=== PATIENT | female | born 1965 | race Caucasian/White ===

== ENCOUNTER 2017-06-29 10:15 | Emergency (ER) | payer OTHER ==
[~2017-06-29] VITALS: Ht 167.6 cm; Wt 90.0 kg
[~2017-06-29 10:15] MED LIST: ALPR-138 PO; DILTCD180 PO; METO100 PO
[2017-06-29 10:36] VITALS: BP 164/97; PULSE 82; RESP 18; TEMP 98.7; O2SAT 98
[2017-06-29 10:56] VITALS: BP 160/91; PULSE 89; RESP 18; O2SAT 98
[2017-06-29] MEDS ORDERED: CLON0.1T PO (10:59)
[2017-06-29] MEDS ORDERED: METO100T PO (10:59)
[2017-06-29] MEDS ORDERED: HYDR12.56 PO (10:59)
[2017-06-29] MEDS ORDERED: ALPR0.25 PO (10:59)
[2017-06-29] MEDS ORDERED: ASPI-516 CHEW (10:59)
[2017-06-29] MEDS ORDERED: KETOROLAC TROMETHAMINE 30 MG/ML (IVP) VIAL IV PUSH ONE (11:15)
[2017-06-29] MEDS ORDERED: SODIUM CHLORIDE 0.9% FLUSH 10 ML FLUSH IVF PRN (11:15)
[2017-06-29 11:20] VITALS: O2SAT 98
--- NOTE | 2017-06-29 11:21 | PD ---
HPI Chief Complaint: Pain: Acute or Chronic Time Seen by Provider: 11:06 Travel History International Travel<30 days: No Contact w/Intl Traveler<30days: No Traveled to known affect area: No History of Present Illness HPI This is a 52-year-old female with a history of atrial fibrillation, anxiety disorder, hypertension, chronic alcohol use, presents today with complaints of brief left-sided upper chest pain starting today. Patient also reports left posterior back/scapular pain that started 3 days ago. She reports it as a sharp stabbing pain into her left subscapular area. She states that it is worse with movement and with inspiration. The patient is not currently on blood and there is other than an aspirin. She states that she had elected to not be on blood thinners. She states the chest pain started today. She is not sure if it seems related to this or not. There is no reported fevers, chills. There is no reported shortness of breath just the pain with breathing. No nausea no diaphoresis. PFSH Past Medical History Asthma: No Atrial Fibrillation: Yes Anxiety: Yes Depression: No Heart Rhythm Problems: No Cancer: Yes (LEFT BREAST) Cardiac Catheterization: No Cardiovascular Problems: Yes High Cholesterol: No Chest Pain: Yes (REASON FOR VISIT ) Congestive Heart Failure: No COPD: No Diabetes: No Diminished Hearing: No Endocrine: No Hepatitis: No Hiatal Hernia: No Hypertension: Yes Immune Disorder: No Medical other: Yes (ARTHRITIS) Musculoskeletal: No Neurologic: No Psychiatric: No Reproductive: No Respiratory: No Integumentary: Yes (BI LAT LOW LEG EDEMA) Radiation Therapy: Yes Sleep Apnea: No Thyroid Disease: No Tetanus Vaccination: Unknown Influenza Vaccination: No ?: Not Past Surgical History Section: Yes Coronary Artery Bypass Graft: No Gynecologic Surgery: Yes (C SECTION, HYSTERECTOMY) Hysterectomy: Yes Oral Surgery: Yes (T & A) Pacemaker: No Thoracic Surgery: Yes (LEFT BREAST MASTECTOMY) Tonsillectomy: Yes Social History Alcohol Use: Yes (WEEKLY) Tobacco Use: No Substance Use: No Allergies-Medications (Allergen,Severity, Reaction): Coded Allergies: No Known Allergies (Verified Adverse Reaction, Unknown, 06/29/17) Reported Meds & Prescriptions Reported Meds & Active Scripts Active Hydrocodone-Acetaminophen 5-325 mg Tab 1 Tab PO Q6H PRN Arthrotec 75 (Diclofenac-Misoprostol) 75-0.2 Mg Tab 1 Tab PO BID Flexeril (Cyclobenzaprine HCl) 10 Mg Tab 10 Mg PO TID Reported Alprazolam 0.25 Mg Tab 0.25 Mg PO Q8H PRN Clonidine (Clonidine HCl) 0.1 Mg Tab 0.1 Mg PO BID Hydrochlorothiazide 12.5 Mg Tab 12.5 Mg PO DAILY Metoprolol Tartrate 100 Mg Tab 100 Mg PO DAILY Aspirin 81 Mg Chew 81 Mg CHEW DAILY Review of Systems Except as stated in HPI: all other systems reviewed are Neg General / Constitutional: No: Fever, Chills HENT: No: Headaches, Lightheadedness Cardiovascular: Positive: Irregular Rhythm (History of A. fib), No: Chest Pain or Discomfort, Palpitations Respiratory: Positive: Pleuritic Pain (Left scapular), No: Cough, Shortness of Breath Gastrointestinal: No: Nausea, Vomiting, Abdominal Pain Genitourinary: No: Frequency, Dysuria, Incontinence Musculoskeletal: Positive: Pain, Other (Worse with movement), No: Weakness Skin: No Rash, No Lesions Neurologic: No: Weakness, Dizziness, Headache, Change in Mentation Physical Exam Narrative GENERAL: Well-developed well-nourished female in no obvious respiratory distress. SKIN: Focused skin assessment warm/dry. Patient's face is ready and has rubra. HEAD: Atraumatic. Normocephalic. EYES: No scleral icterus. No injection or drainage. ENT: No nasal bleeding or discharge. Mucous membranes pink and moist. NECK: Trachea midline. Supple. CARDIOVASCULAR: Irregularly irregular with a rate in the 80s. No murmur appreciated. RESPIRATORY: No accessory muscle use. Clear to auscultation. Breath sounds equal bilaterally. Patient has tenderness to palpation in her inferior sub- scapular distribution. No bony deformities. No bruising. GASTROINTESTINAL: Abdomen soft, non-tender, nondistended. MUSCULOSKELETAL: No obvious deformities. No clubbing. No cyanosis. No edema. NEUROLOGICAL: Awake and alert. No obvious cranial nerve deficits. Motor grossly within normal limits. Normal speech. PSYCHIATRIC: Anxious appearing. Data Data Last Documented VS Vital Signs Date Time Temp Pulse Resp B/P (MAP) Pulse Ox O2 Delivery O2 Flow Rate FiO2 06/29/17 12:43 18 06/29/17 12:34 93 133/88 (103) 98 Room Air 06/29/17 10:36 98.7 Orders Orders Electrocardiogram (06/29/17 11:06) Ckmb (Isoenzyme) Profile (06/29/17 11:06) Complete Blood Count With Diff (06/29/17 11:06) Comprehensive Metabolic Panel (06/29/17 11:06) D-Dimer (06/29/17 11:06) Magnesium (Mg) (06/29/17 11:06) Prothrombin Time / Inr (Pt) (06/29/17 11:06) Act Partial Throm Time (Ptt) (06/29/17 11:06) Troponin I (06/29/17 11:06) Ecg Monitoring (06/29/17 11:06) Bilateral Bp Monitoring (06/29/17 11:06) Iv Access Insert/Monitor (06/29/17 11:06) Oximetry (06/29/17 11:06) Oxygen Administration (06/29/17 11:06) Sodium Chloride 0.9% Flush (Ns Flush) (06/29/17 11:15) Ribs, Uni (W/Exp Cxr-Min 3vw) (06/29/17 11:06) Ketorolac Inj (Toradol Inj) (06/29/17 11:15) CKMB (06/29/17 11:12) CKMB% (06/29/17 11:12) Ct Pulmonary Angiogram (06/29/17 12:42) Iohexol 350 Inj (Omnipaque 350 Inj) (06/29/17 13:34) Ed Discharge Order (06/29/17 14:19) Labs Laboratory Tests Test 06/29/17 11:12 White Blood Count 7.2 TH/MM3 Red Blood Count 4.87 MIL/MM3 Hemoglobin 16.3 GM/DL Hematocrit 47.3 % Mean Corpuscular Volume 97.1 FL Mean Corpuscular Hemoglobin 33.4 PG Mean Corpuscular Hemoglobin Concent 34.4 % Red Cell Distribution Width 13.9 % Platelet Count 172 TH/MM3 Mean Platelet Volume 8.7 FL Neutrophils (%) (Auto) 64.7 % Lymphocytes (%) (Auto) 19.9 % Monocytes (%) (Auto) 12.2 % Eosinophils (%) (Auto) 1.7 % Basophils (%) (Auto) 1.5 % Neutrophils # (Auto) 4.7 TH/MM3 Lymphocytes # (Auto) 1.4 TH/MM3 Monocytes # (Auto) 0.9 TH/MM3 Eosinophils # (Auto) 0.1 TH/MM3 Basophils # (Auto) 0.1 TH/MM3 CBC Comment DIFF FINAL Differential Comment Prothrombin Time 10.7 SEC Prothromb Time International Ratio 1.1 RATIO Activated Partial Thromboplast Time 26.4 SEC D-Dimer Quantitative (PE/DVT) 0.53 MG/L FEU Blood Urea Nitrogen 7 MG/DL Creatinine 0.68 MG/DL Random Glucose 93 MG/DL Total Protein 7.7 GM/DL Albumin 4.0 GM/DL Calcium Level 8.8 MG/DL Magnesium Level 1.5 MG/DL Alkaline Phosphatase 74 U/L Aspartate Amino Transf (AST/SGOT) 63 U/L Alanine Aminotransferase (ALT/SGPT) 41 U/L Total Bilirubin 0.8 MG/DL Sodium Level 140 MEQ/L Potassium Level 3.7 MEQ/L Chloride Level 103 MEQ/L Carbon Dioxide Level 30.1 MEQ/L Anion Gap 7 MEQ/L Estimat Glomerular Filtration Rate 91 ML/MIN Total Creatine Kinase 136 U/L Creatine Kinase MB 1.7 NG/ML Troponin I LESS THAN 0.02 NG/ML MDM Medical Decision Making Medical Screen Exam Complete: Yes Emergency Medical Condition: Yes Differential Diagnosis ACS versus pulmonary embolus versus musculoskeletal strain. Narrative Course 52-year-old female presents today with complaints of left posterior scapular pain 4 days. Patient also stated she had a brief episode of left upper chest wall pain. She feels as though they are related. She denies any chest pain at this time. She denies any chest pressure diaphoresis. She reported as a sharp discomfort that radiated to her left upper back. EKG showed A. fib with rate control. Cardiac enzymes within normal limits. D-dimer unfortunate was slightly elevated. A CT scan of the chest to rule out pulmonary embolism was ordered which shows no evidence of acute process. Left rib series showed no evidence of broken ribs. The patient is point tender right under her scapula. I believe this is musculoskeletal in etiology. I discussed with her that at this point while her cardiac enzymes are negative, we would still recommend she consider staying for a rule out in the chest pain center. The patient has adamantly stated that she does not wish to stay in the hospital. She states that she will follow-up with her primary care physician, Dr. Tyrel Arteaga. I will place her on Arthrotec and Flexeril for the muscle pain. I will also give her 2 days of Lortab fives for breakthrough pain. She is instructed to use moist heat on the affected area 2-3 times daily. She is instructed to return if she does any recurrent chest pain, shortness of breath, nausea, diaphoresis, or any other reason that concerns her. Diagnosis Primary Impression: Left posterior subscapular pain. Additional Impressions: Atypical chest pain A. fib by history. Additional Instructions: Return if chest pain returns, shortness breath, nausea, heavy sweating, or any other reason that concerns you. Do not drink alcohol while taking muscle relaxers and pain medication. Follow-up with Dr. Arteaga for further evaluation. We are happy to see you at any time if you reconsider coming back for the chest pain evaluation. Med/Other Pt SpecificInfo: Prescription(s) given Scripts Hydrocodone-Acetaminophen (Hydrocodone-Acetaminophen) 5-325 mg Tab 1 TAB PO Q6H Y for PAIN, #8 TAB 0 Refills Prov: Tim Hager MD 06/29/17 Diclofenac-Misoprostol (Arthrotec 75) 75-0.2 Mg Tab 1 TAB PO BID for Pain Management, #10 TAB 0 Refills Prov: Tim Hager MD 06/29/17 Cyclobenzaprine (Flexeril) 10 Mg Tab 10 MG PO TID for Muscle Spasm, #15 TAB 0 Refills Prov: Tim Hager MD 06/29/17 Disposition: 01 DISCHARGE HOME Condition: Stable Tim Hager MD Jun 29, 2017 11:21
[2017-06-29 11:34] LABS: AUTOMATED NEUTROPHIL # 4.7 TH/MM3 (1.8-7.7); BASOPHIL # 0.1 TH/MM3 (0-0.2); BASOPHIL % 1.5 % (0.0-2.0); EOSINOPHIL # 0.1 TH/MM3 (0-0.4); EOSINOPHIL % 1.7 % (0.0-4.0); HEMATOCRIT 47.3 % (35.0-46.0); HEMOGLOBIN 16.3 GM/DL (11.6-15.3); LYMPH % 19.9 % (9.0-44.0); LYMPHOCYTE # 1.4 TH/MM3 (1.0-4.8); MEAN CELL VOLUME 97.1 FL (80.0-100.0); MEAN CORPUSCULAR HEMOGLOBIN 33.4 PG (27.0-34.0); MEAN CORPUSCULAR HGB CONC 34.4 % (32.0-36.0); MEAN PLATELET VOLUME 8.7 FL (7.0-11.0); MONO % 12.2 % (0.0-8.0); MONOCYTE # 0.9 TH/MM3 (0-0.9); NEUT % 64.7 % (16.0-70.0); PLATELET COUNT 172 TH/MM3 (150-450); RED BLOOD COUNT 4.87 MIL/MM3 (4.00-5.30); RED CELL DISTRIBUTION WIDTH 13.9 % (11.6-17.2); WHITE BLOOD COUNT 7.2 TH/MM3 (4.0-11.0)
[2017-06-29 11:43] LABS: INTERNATIONAL NORMALIZED RATIO 1.1 RATIO; PROTHROMBIN TIME - PATIENT 10.7 SEC (9.8-11.6)
[2017-06-29 11:46] LABS: D-DIMER 0.53 MG/L FEU (0.00-0.50)
--- NOTE | 2017-06-29 11:50 | RADRPT ---
EXAM DATE/TIME: 06/29/2017 11:22 [facility] COMPARISON: No previous studies available for comparison. INDICATIONS : Pain left lower, posterior ribs for 2 weeks, coughing for 2 months, denies trauma MEDICAL HISTORY : Carcinoma, breast. Hypertension A-fib SURGICAL HISTORY : Mastectomy, left. Hysterectomy. Tonsillectomy. breast reconstruction ENCOUNTER: Initial ACUITY: 2 weeks PAIN SCORE: 7/10 LOCATION: Left posterior ribs FINDINGS: 5 views of the chest and left ribs demonstrate no rib fracture or acute rib abnormality. No pneumotho rax is present. Visualized chest demonstrates no acute finding. CONCLUSION: No rib fracture or acute abnormality is identified. Yovani Gipson MD on June 29, 2017 at 11:47 Board Certified Radiologist. This report was verified electronically.
[2017-06-29 11:51] LABS: ALT (GPT) 41 U/L (10-53); AST (GOT) 63 U/L (15-37); BICARBONATE 30.1 MEQ/L (21.0-32.0); BLOOD UREA NITROGEN 7 MG/DL (7-18); CALCIUM 8.8 MG/DL (8.5-10.1); CHLORIDE 103 MEQ/L (98-107); CREATININE 0.68 MG/DL (0.50-1.00); GLOMERULAR FILTRATION RATE 91 ML/MIN (>89); GLUCOSE,RANDOM 93 MG/DL (74-106); MAGNESIUM 1.5 MG/DL (1.5-2.5); SODIUM (NA) 140 MEQ/L (136-145)
[2017-06-29 11:55] LABS: ALKALINE PHOSPHATASE 74 U/L (45-117); TOTAL BILIRUBIN ADULT 0.8 MG/DL (0.2-1.0); TOTAL PROTEIN 7.7 GM/DL (6.4-8.2); TROPONIN I LESS THAN 0.02 NG/ML (0.02-0.05)
[2017-06-29 12:34] VITALS: BP 133/88; PULSE 93; RESP 18; O2SAT 98
[2017-06-29 12:43] VITALS: RESP 18
[2017-06-29] MEDS ORDERED: IOHEXOL 350 MG/ML 10 ML VIAL (for RAD DIAG) IVCONTRAST ONE (13:34)
--- NOTE | 2017-06-29 13:48 | RADRPT ---
EXAM DATE/TIME: 06/29/2017 13:26 [facility] COMPARISON: CT PULMONARY ANGIOGRAM, December 06, 2014, 2:47. INDICATIONS : Left chest pain since this morning, dyspnea IV CONTRAST: 60 cc Omnipaque 350 (iohexol) IV RADIATION DOSE: 10.73 CTDIvol (mGy) MEDICAL HISTORY : Hypertension. Carcinoma, breast. SURGICAL HISTORY : Mastectomy, left. ENCOUNTER: Initial ACUITY: 1 day PAIN SCALE: 8/10 LOCATION: Left chest TECHNIQUE: Volumetric scanning of the chest was performed using a pulmonary embolism protocol MIP images were re constructed. Using automated exposure control and adjustment of the mA and/or kV according to patien t size, radiation dose was kept as low as reasonably achievable to obtain optimal diagnostic quality images. DICOM format image data is available electronically for review and comparison. Follow-up recommendations for detected pulmonary nodules are based at a minimum on nodule size and pa tient risk factors according to Fleischner Society Guidelines. FINDINGS: PULMONARY ARTERIES: No filling defects are seen in the pulmonary arteries through the segmental level. LUNGS: There is stable mild pleural-parenchymal scarring in the posterior medial lower lobes bilaterally. No suspicious nodules or masses. No evidence of consolidative infiltrate. PLEURAE: There is no pleural thickening or pleural effusion. MEDIASTINUM: There is stable slightly greater than 1 cm right paratracheal lymph node at the cervicothoracic junct ion. The great vessels are intact. MUSCULOSKELETAL: Within normal limits for patient age. MISCELLANEOUS: The visualized upper abdominal organs demonstrate no acute abnormality. CONCLUSION: No evidence of pulmonary embolism Yovani Vogel MD on June 29, 2017 at 13:41 Board Certified Radiologist. This report was verified electronically.
[2017-06-29] MEDS ORDERED: ARTHTAB5 PO (14:14)
[2017-06-29] MEDS ORDERED: CYCL10TA PO (14:14)
[2017-06-29] MEDS ORDERED: HYDR-3516 PO (14:14)
--- NOTE | 2017-06-30 12:29 | EKG ---
Date Performed: 06/29/2017 Time Performed: 10:49:34 PTAGE: 52 years EKG: ATRIAL FIBRILLATION ABNORMAL RHYTHM ECG PREVIOUS TRACING : 12/05/2014 09.14 Since the prior tracing, there has been no significant doe DOCTOR: William Chao Interpretating Date/Time 06/30/2017 12:28:51
== END 2017-06-29 14:48 | disposition home or self-care (01) ==
LOC: NEPE 10:15
DX: M25.512 Pain in left shoulder (principal); R07.89 Other chest pain; I48.91 Unspecified atrial fibrillation; R94.31 Abnormal electrocardiogram [ECG] [EKG]; F41.9 Anxiety disorder, unspecified; I10 Essential (primary) hypertension; M19.90 Unspecified osteoarthritis, unspecified site; Z79.82 Long term (current) use of aspirin; Z79.899 Other long term (current) drug therapy
CPT/HCPCS: 71101; 71275; 80053; 82550; 82552; 83735; 84484; 85025; 85379; 85610; 85730; 93005; 96374; 99285; J1885; Q9967